=== PATIENT | female | born 1975 | race Hispanic/Latino ===

== ENCOUNTER 2016-11-30 08:03 | Emergency (ER) | payer OTHER ==
[2016-11-30 08:15] VITALS: BP 109/75; RESP 16; TEMP 97.9
[2016-11-30 08:51] VITALS: PULSE 76; O2SAT 99; BMI 21.2
[2016-11-30] MEDS ORDERED: Tobramycin 0.3% OPHT SOLN OS STA (09:27)
--- NOTE | 2016-11-30 09:31 | ED PDOC ---
Arrival/HPI - General Chief Complaint: Eye Problem Time Seen by Provider: 11/30/16 09:27 Historian: Patient - History of Present Illness Narrative History of Present Illness (Text): 11/30/16 13:17 41yo female present with complaint of right upper eyelid swelling, redness discharge x 2days. States it started with itching. she also notes that the symptoms is starting on her left eye. She denies photophobia, visual acuity change, fever, any other complaint. Past Medical History - Provider Review Nursing Documentation Reviewed: Yes - Infectious Disease Hx of Infectious Diseases: None - Reproductive Menopause: No - Psychiatric Hx Psychophysiologic Disorder: No Hx Substance Use: No - Anesthesia Hx Anesthesia: No Hx Anesthesia Reactions: No Hx Malignant Hyperthermia: No Family/Social History - Physician Review Nursing Documentation Reviewed: Yes Family/Social History: Unknown Family HX Smoking Status: Current Some Days Smoker Hx Alcohol Use: Yes Frequency of alcohol use: Socially Hx Substance Use: No Allergies/Home Meds Allergies/Adverse Reactions: Allergies hydrocodone Allergy (Verified 11/30/16 08:46) ITCHING Home Medications: Home Meds Medication Instructions Recorded Confirmed No Known Home Med 11/30/16 11/30/16 Review of Systems - Physician Review All systems were reviewed & negative as marked: Yes - Review of Systems Constitutional: Normal Eyes: Other (Right upper eyelid swelling, redness and discahrge). absent: Vision Changes, Photophobia, Eye Pain ENT: Normal Respiratory: Normal Cardiovascular: Normal Gastrointestinal: Normal Genitourinary Female: Normal Musculoskeletal: Normal Skin: Normal Neurological: Normal Endocrine: Normal Hemo/Lymphatic: Normal Psychiatric: Normal Physical Exam Vital Signs Reviewed: Yes Vital Signs Temp Pulse Resp BP Pulse Ox 11/30/16 08:46 97.9 F 76 16 109/75 99 11/30/16 08:14 97.9 F 75 16 109/75 96 Temperature: Afebrile Blood Pressure: Normal Pulse: Regular Respiratory Rate: Normal Appearance: Positive for: Well-Appearing, Non-Toxic, Comfortable Pain Distress: None Mental Status: Positive for: Alert and Oriented X 3 - Systems Exam Head: Present: Atraumatic, Normocephalic Pupils: Present: PERRL Extroacular Muscles: Present: EOMI, Other (Diffuse upper eyelid swelling and erythema noted) Conjunctiva: Present: Normal Mouth: Present: Moist Mucous Membranes Neck: Present: Normal Range of Motion Respiratory/Chest: Present: Clear to Auscultation, Good Air Exchange. No: Respiratory Distress, Accessory Muscle Use Cardiovascular: Present: Regular Rate and Rhythm, Normal S1, S2. No: Murmurs Abdomen: Present: Normal Bowel Sounds. No: Tenderness, Distention, Peritoneal Signs Back: Present: Normal Inspection Upper Extremity: Present: Normal Inspection. No: Cyanosis, Edema Lower Extremity: Present: Normal Inspection. No: Edema Neurological: Present: GCS=15, CN II-XII Intact, Speech Normal Skin: Present: Warm, Dry, Normal Color. No: Rashes Psychiatric: Present: Alert, Oriented x 3, Normal Insight, Normal Concentration Medical Decision Making - Medication Orders Current Medication Orders: Discontinued Medications Tobramycin Sulfate (Tobrex 0.3% Ophth Soln) 2 drop OS STAT STA Stop: 11/30/16 09:28 Last Admin: 11/30/16 09:41 Dose: 2 drop Disposition/Present on Arrival - Present on Arrival Any Indicators Present on Arrival: No History of DVT/PE: No History of Uncontrolled Diabetes: No Urinary Catheter: No History of Decub. Ulcer: No History Surgical Site Infection Following: None - Disposition Have Diagnosis and Disposition been Completed?: Yes Diagnosis: Conjunctivitis, Hordeolum external Disposition: HOME/ ROUTINE Disposition Time: 09:00 Patient Plan: Discharge Condition: STABLE Discharge Instructions (ExitCare): Conjunctivitis (ED) Additional Instructions: Follow up with your Doctor/Proposal Review Analyst Return to ED for worsening redness, fever, any other complaint Referrals: Daron Knight MD [Staff Provider] - Follow up with primary
== END 2016-11-30 10:06 | disposition home or self-care (01) ==
LOC: ED 08:03
DX: H10.9 Unspecified conjunctivitis (principal); H00.011 Hordeolum externum right upper eyelid